=== PATIENT | male | born 1950 | race Caucasian/White ===

== ENCOUNTER → 2021-11-18 13:12 | Outpatient (CLI) | payer MEDICARE, OTHER, SELFPAY ==
--- NOTE | 2021-11-18 | DI.CT.S_ITS ---
PROCEDURE: CT SINUS SCREEN WO CON INDICATIONS: Chronic pansinusitis TECHNIQUE: Noncontrast 3.0 mm axial images acquired from the frontal sinuses to the mid-sella, with coronal and sagittal reformats. For radiation dose reduction, the following was used: automated exposure control, adjustment of mA and/or kV according to patient size. COMPARISON: None. FINDINGS: Image quality: Excellent. Maxillary Sinuses: No bony remodeling or destruction. Sinuses are clear. Ethmoid Air Cells: No bony remodeling or destruction. Sinuses are clear. Sphenoid Sinuses: No bony remodeling or destruction. Sinuses are clear. Frontal Sinuses: No bony remodeling or destruction. Sinuses are clear. Ostiomeatal Complexes: Ostiomeatal complexes are patent, yet they are constitutionally narrowed. No Chris cells. Miscellaneous: Visualized intra-orbital contents are normal. No olya bullosa or paradoxical turbinate curvature. No significant nasal septal deviation. IMPRESSION: No significant active paranasal sinus disease can be seen. Dictated by: Terry Ibrahim M.D. on 11/18/2021 at 12:48 Approved by: Terry Ibrahim M.D. on 11/18/2021 at 12:48
== END ==
PROVIDERS: Family Provider Physical Medicine & Rehabilitation; PCP Nurse Practitioner Family; Referring Provider Otolaryngology; Visit Provider Otolaryngology
DX: J32.4 Chronic pansinusitis (principal); J34.89 Other specified disorders of nose and nasal sinuses
CPT/HCPCS: 70486

== ENCOUNTER 2022-02-08 07:30 | Outpatient (RCR) | payer MEDICARE, OTHER, SELFPAY ==
--- NOTE | 2021-12-14 16:00 | PT.OPPOC ---
Physical, Occupational & Speech Therapy At [facility] Current Diagnoses Vestibular neuronitis, bilateral (12/14/21) Dizziness and giddiness (12/14/21) Visit Care Team Role Provider Type Regan Bishop DO Family Provider Non-Staff Primary Care Provider Specialty: Family Practice Address: [address] [place] [address], [facility] [place], [address] Fax: Email: Calvin Adams MD Attending Provider Physician Referring Provider Specialty: Ear, Nose, Throat Address: [address] [place] [address], [id number] Email: [email or web address] Plan Of Care PT-OP-T Assessment and Plan Start: 12/14/21 13:54 Freq: Status: Active Protocol: Document 12/14/21 13:45 AMB (Rec: 12/15/21 11:25 AMB [id number]) Physical Therapy Assessment Rehab Potential Rehabilitation Potential Good Evaluation Complexity Number of Personal Factors/Comorbidities 3 or More Number of Body Systems Impaired 3 Clinical Presentation at Evaluation Evolving Impairments Impairments Functional Activities,Gait, Vestibular Goals Two Impairment Gait instability Short Term Goal (STG) Jareth will walk with head turns without severe veering. STG Duration 4 weeks Comb Tender Goal (LTG) Jareth will balance with a narrow base of support and eyes closed without falling. LTG Duration 8 weeks One Impairment Positional tolerance Short Term Goal (STG) Jareth will sleep on his right side without a feeling of imbalance. STG Duration 4 weeks Penitentiary Goal (LTG) Jareth will perform all bed mobility without a feeling of imbalance. LTG Duration 8 weeks Assessment Summary Assessment Jareth attends physical therapy with persistent feelings of imbalance and specifically rocking. He had a 3 month physical therapy series previously which sounds like it was helpful but did not full resolve his symptoms. He then had a VNG which interestingly showed bilateral dysfunction. During assessment he struggled with eyes closed activities (fall), he had symptoms with walking with horizontal head turns, positional testing was negative, but he did have brief symptoms when coming up into sitting from right sidelying. He will benefit from PT to improve his adaptation, dynamic balance, and reduce his rocking symptoms. Physical Therapy Plan Frequency and Duration Frequency of Treatment 2x/Week Duration of Treatment 8 weeks Plan of Care Start Date 12/14/21 Plan of Care End Date 02/08/22 Therapeutic Interventions Therapeutic Interventions Balance Training,Gait Training ,Home Exercise Program, Neuromuscular Re-education, Self-Care/Home Management, Therapeutic Activities, Therapeutic Exercises, Vestibular Rehabilitation Next Visit Focus/Plan Next Note Type Treatment Note Next Visit Plan Progress VOR training Plan of Care Dates Plan of Care Start Date 12/14/21 Plan of Care End Date 02/08/22 Electronically Signed by: Alena Clinton, PT 12/15/21 1119 Please Sign and Return: I have reviewed this Plan of Care and certify that the skilled therapy services above are required to meet the patient?s needs. Physician Signature Date Printed Name and Credentials Clinical Instructor Signature Printed Name and Credentials
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
== END 2022-02-09 12:58 ==
LOC: PHYS 07:30
PROVIDERS: Family Provider Family Medicine Adult Medicine; PCP Family Medicine Adult Medicine; Referring Provider Otolaryngology; Visit Provider Otolaryngology
DX: H81.23 Vestibular neuronitis, bilateral (principal); R42 Dizziness and giddiness
CPT/HCPCS: 97112; 97140; 97162